=== PATIENT | male | born 1955 ===

== ENCOUNTER 2020-06-04 13:41 | Emergency (ER) | payer MEDICARE, OTHER ==
--- NOTE | 2020-06-04 14:08 | EDM.PDOC ---
ED HPI GENERAL MEDICAL PROBLEM - General Chief Complaint: Back Pain or Injury Stated Complaint: SEVERE BACK PAIN Time Seen by Provider: 06/04/20 13:56 Source of Information: Reports: Patient History Limitations: Reports: No Limitations - History of Present Illness INITIAL COMMENTS - FREE TEXT/NARRATIVE: HISTORY AND PHYSICAL: History of present illness: Patient is a 65-year-old male who presents to the ED today with concern of low back pain. Patient states he has chronic low back pain and has had multiple surgeries on his low back. Patient states that he has had an exacerbation of his low back over the past month and is seen the pain specialist, Dr. Nash as well as his primary care provider, Dr. serrano. Patient states he has been on oxycodone for 2 to 3 years which is prescribed by Dr. serrano. Patient states that he saw Dr. serrano [address] serrano increased his dose of oxycodone from 10 mg 4 times a day to 15 mg 4 times a day. Patient states he also has Flexeril available to him but does not use this because it makes him "act funny ". Patient states his low back pain today is typical of his usual low back pain and is not changed in nature from his multiple years of low back pain. Patient denies any loss or retention of bowel bladder function or saddle anesthesia. Patient denies any trauma or injury of his low back. Patient states he does bass ve an appointment in 1 week to see a neurosurgeon in [facility]. Patient states that his pain became more severe and he called the surgeon who told him to come to the ED to be further evaluated. Patient states he also had an MRI and CT imaging of his low back 1 week ago and was told that he has multiple nerves compressed and arthritis according to patient. Patient denies fever, chills, chest pain, shortness of breath, or cough. Denies headache, neck stiff ness, change in vision, syncope, or near syncope. Denies nausea, vomiting, abdominal pain, diarrhea, constipation, or dysuria. Has not noted any blood in urine or stool. Patient has been eating and drinking appropriately. Review of systems: As per history of present illness and below otherwise all systems reviewed and negative. Past medical history: As per history of present illness and as reviewed below otherwise noncontributory. Surgical history: As per history of present illness and as reviewed below otherwise noncontributory. Social history: See social history for further information Family history: As per history of present illness and as reviewed below otherwise noncontributory. Physical exam: General: Patient is alert, oriented, and in no acute distress. Patient sitting comfortably on exam table. HEENT: Atraumatic, normocephalic, pupils equal and reactive bilaterally, negative for conjunctival pallor or scleral icterus, mucous membranes moist, TMs normal bilaterally, throat clear, neck supple, nontender, trachea midline. No drooling or trismus noted. No meningeal signs. No hot potato voice noted. Lungs: Clear to auscultation, breath sounds equal bilaterally, chest nontender. Heart: S1S2, regular rate and rhythm without overt murmur Abdomen: Soft, nondistended, nontender. Negative for masses or hepatosplenomegaly. Negative for costovertebral tenderness. Pelvis: Stable nontender. Genitourinary: Deferred. Rectal: Deferred. Skin: Intact, warm, dry. No lesions or rashes noted. Extremities: No obvious deformity of the complete spine. No step-offs, crepitus, or point tenderness to palpation of the complete spine. There is scarring consistent with surgical history of the lumbar spine. Heel/toe gait intact. Patellar reflux intact bilaterally. Patient does have pain with ROM of the lumbar spine. Otherwise, atraumatic, negative for cords or calf pain. Neurovascular unremarkable. Neuro: Awake, alert, oriented. Cranial nerves II through XII unremarkable. Cerebellum unremarkable. Motor and sensory unremarkable throughout. Exam nonfocal. Notes: Patient does have indomethacin written on his medication list, however, he only uses this as needed for a gout flare. Patient states he has not had issues with gout in over a year and is not taking indomethacin at this time although this remains on his medication list. Patient does have an appointment in 1 week to meet with a neurosurgeon in regards to his recent imaging. Patient does have oxycodone available to him which has been adjusted recently with his primary care provider and I will not adjust the dose at this time. Patient does not have any change in his back pain that is been ongoing for multiple years and do not see any emergent need for a scan or imaging at this time. I will give patient a short burst of steroids in order to get him through to his neurosurgery appointment in 1 week. Voices understanding and is agreeable to plan of care. Denies any further questions or concerns at this time. Diagnostics: UA, patient declines EKG Therapeutics: Solumedrol, Toradol Prescription: Prednisone Impression: Acute on chronic low back pain Plan: 1. When resting please lay on a flat firm surface. Limit your mobility to prevent muscle stiffness. Get up to ambulate/move around/gentle stretching multiple times throughout the day. May alternate heat and ice to painful areas. 2. Tylenol and ibuprofen as needed for back pain. Otherwise, take the prescribed medication as directed. You can also continue to use your at home prescribed Oxycodone as already prescribed to you prior for pain management as prescribed. 3. Follow-up with your primary care provider and neurosurgeon as discussed. Return to the ED as needed and as discussed. Definitive disposition and diagnosis as appropriate pending reevaluation and review of above. Lower back pain Pain Score (Numeric/FACES): 10 - Related Data Allergies Allergy/AdvReac Type Severity Reaction Status Date / Time Penicillins Allergy Swelling Verified 06/04/20 13:59 Home Meds: Home Meds Indomethacin [Indocin] 50 mg PO TID PRN 10 Days #30 cap 07/30/18 [Rx] Allopurinol [Zyloprim] 100 mg PO DAILY 06/04/20 [History] Finasteride 5 mg PO DAILY 06/04/20 [History] Furosemide 40 mg PO DAILY 06/04/20 [History] Metoprolol Tartrate [Lopressor] 50 mg PO BID 06/04/20 [History] Triamterene/Hydrochlorothiazid [Triamterene-HCTZ 37.5-25 MG] 0.5 tab PO DAILY [History] lisinopriL [Lisinopril] 20 mg PO DAILY 06/04/20 [History] oxyCODONE 15 mg PO Q4HR 06/04/20 [History] predniSONE [Prednisone] 20 mg PO DAILY 5 Days #5 tablet 06/04/20 [Rx] Past Medical History Cardiovascular History: Reports: Bypass, High Cholesterol, Hypertension, [place] Respiratory History: Reports: COPD, Sleep Apnea Other Respiratory History: CPAP Musculoskeletal History: Reports: Back Pain, Chronic, Other (See Below) Other Musculoskeletal History: R wrist pain Psychiatric History: Reports: Anxiety, Depression - Past Surgical History Cardiovascular Surgical History: Reports: Coronary Artery Bypass Social & Family History - Family History Family Medical History: Noncontributory - Caffeine Use Caffeine Use: Reports: Soda ED ROS GENERAL - Review of Systems Review Of Systems: Comprehensive ROS is negative, except as noted in HPI. ED EXAM, GENERAL - Physical Exam Exam: See Below (see dictation) Course - Vital Signs Last Recorded V/S: Last Vital Signs Temp 98.2 F 06/04/20 14:00 Pulse 90 06/04/20 14:00 Resp 20 06/04/20 14:00 BP 139/76 06/04/20 14:00 Pulse Ox 97 06/04/20 14:00 - Orders/Labs/Meds Orders: Active Orders 24 hr Category Date Time Status EKG Documentation Completion [RC] STAT Care 06/04/20 14:50 Active Labs: Laboratory Tests 06/04/20 Range/Units 14:55 Urine Color YELLOW Urine Appearance CLEAR Urine pH 6.0 (5.0-8.0) Ur Specific [place] 1.010 (1.001-1.035) Urine Protein NEGATIVE (NEGATIVE) mg/dL Urine Glucose (UA) NEGATIVE (NEGATIVE) mg/dL Urine Ketones NEGATIVE (NEGATIVE) mg/dL Urine Occult Blood NEGATIVE (NEGATIVE) Urine Nitrite NEGATIVE (NEGATIVE) Urine Bilirubin NEGATIVE (NEGATIVE) Urine Urobilinogen 0.2 (<2.0) EU/dL Ur Leukocyte Esterase NEGATIVE (NEGATIVE) Meds: Medications Discontinued Medications Generic Name Dose Route Start Last Admin Trade Name Freq PRN Reason Stop Dose Admin Ketorolac Tromethamine 60 mg 06/04/20 14:44 06/04/20 14:50 Toradol IM 06/04/20 14:45 60 mg ONETIME ONE Administration Methylprednisolone Sodium Succinate 125 mg 06/04/20 14:36 06/04/20 14:50 Solu-Medrol IM 06/04/20 14:37 125 mg ONETIME ONE Administration Departure - Departure Time of Disposition: 14:50 Disposition: Home, Self-Care 01 Clinical Impression: Acute exacerbation of chronic low back pain - Discharge Information Prescriptions: predniSONE [Prednisone] 20 mg PO DAILY 5 Days #5 tablet Referrals: Jason Serrano MD [Primary Care Provider] - Forms: ED Department Discharge Additional Instructions: The following information is given to patients seen in the emergency department who are being discharged to home. This information is to outline your options for follow-up care. We provide all patients seen in our emergency department with a follow-up referral. The need for follow-up, as well as the timing and circumstances, are variable depending upon the specifics of your emergency department visit. If you don't have a primary care physician on staff, we will provide you with a referral. We always advise you to contact your personal physician following an emergency department visit to inform them of the circumstance of the visit and for follow-up with them and/or the need for any referrals to a consulting specialist. The emergency department will also refer you to a specialist when appropriate. This referral assures that you have the opportunity for follow-up care with a specialist. All of these measure are taken in an effort to provide you with optimal care, which includes your follow-up. Under all circumstances we always encourage you to contact your private physician who remains a resource for coordinating your care. When calling for follow-up care, please make the office aware that this follow-up is from your recent emergency room visit. If for any reason you are refused follow-up, please contact the [facility] Emergency Department at and asked to speak to the emergency department charge nurse. [facility] [address] [place] [address] [id number] 1. When resting please lay on a flat firm surface. Limit your mobility to prevent muscle stiffness. Get up to ambulate/move around/gentle stretching multiple times throughout the day. May alternate heat and ice to painful areas. 2. Tylenol and ibuprofen as needed for back pain. Otherwise, take the prescribed medication as directed. You can also continue to use your at home prescribed Oxycodone as already prescribed to you prior for pain management as prescribed. 3. Follow-up with your primary care provider and neurosurgeon as discussed. Return to the ED as needed and as discussed. Sepsis Event Note (ED) - Evaluation Sepsis Screening Result: No Definite Risk - Focused Exam Vital Signs: Vital Signs Temp Pulse Resp BP Pulse Ox 06/04/20 14:00 98.2 F 90 20 139/76 97 - My Orders Last 24 Hours: My Active Orders 06/04/20 14:50 EKG Documentation Completion [RC] STAT - Assessment/Plan Last 24 Hours: My Active Orders 06/04/20 14:50 EKG Documentation Completion [RC] STAT
[2020-06-04] MEDS ORDERED: methylPREDNISolone Sodium Succinate 125 MG/2 ML SDV IM ONE (14:36)
[2020-06-04] MEDS ORDERED: Ketorolac 60 MG/2 ML SDV IM ONE (14:44)
== END 2020-06-04 15:41 | disposition home or self-care (01) ==
LOC: MW.ED 13:41
DX: M54.5 Low back pain (principal); G89.29 Other chronic pain; I10 Essential (primary) hypertension; E78.00 Pure hypercholesterolemia, unspecified; I25.2 Old myocardial infarction; J44.9 Chronic obstructive pulmonary disease, unspecified; Z95.1 Presence of aortocoronary bypass graft; Z88.0 Allergy status to penicillin; Z79.899 Other long term (current) drug therapy
CPT/HCPCS: 81003; 96372; 99283; J1885; J2930

== ENCOUNTER 2020-06-25 11:47 | Day surgery (SDC) | payer MEDICARE, OTHER ==
[2020-06-25] MEDS ORDERED: Lidocaine 2% 5 ML SDV INJECT ONE (13:00)
[2020-06-25] MEDS ORDERED: Betamethasone Acetate/Betamethasone Sod Phosphate 30 MG/5 ML MDV EPIDUR ONE (13:00)
[2020-06-25] MEDS ORDERED: Iopamidol 200-M 10 ML vial ITHECAL ONE (13:00)
[2020-06-25] MEDS ORDERED: Ropivacaine 0.5% 5 MG/ML 30 ML SDV INJECT ONE (13:00)
--- NOTE | 2020-06-25 18:02 | OR ---
SURGEON: Margaret Kohli D.O. DATE OF PROCEDURE: 06/25/2020 PRIMARY SURGEON: Margaret Kohli DO ASSISTANTS: OR staff present: 1. Jacqui Lovelace. 2. Romain Ram. 3. Jacqui Mi RN. WOUND CLASS: I. PREOPERATIVE DIAGNOSES: 1. Failed back surgery syndrome. 2. Chronic low back pain. 3. Right sacroiliac joint arthropathy. POSTOPERATIVE DIAGNOSES: 1. Failed back surgery syndrome. 2. Chronic low back pain. 3. Right sacroiliac joint arthropathy. PROCEDURES PERFORMED: 1. Right sacroiliac joint injection. 2. Fluoroscopic guidance for needle placement. 3. Local with oral Valium for sedation. SCREENING QUESTIONS: The patient answered "No" to all the followin. Are you allergic to iodine, Betadine or latex? 2. Do you have a bleeding disorder? 3. Do you have any joint replacements, heart valve replacements or a pacemaker? 4. Are you on any anti-inflammatories or blood thinners? 5. Do you have any current local or systemic infections? DESCRIPTION OF PROCEDURE: The patient had the procedure thoroughly explained including all possible risks, benefits and alternatives. Consent was signed in my clinic indicating understanding and willingness to proceed. The patient presented to the outpatient [facility] and was escorted to the dressing room to disrobe and change into a hospital gown. Preoperative vital signs were taken and stable. The patient reported that Valium was taken prior to the procedure. The patient was brought to the procedure room and placed in the prone position on the procedure room table. A pillow was placed under the hips in order to flatten the lumbar lordosis. The back was prepped with ChloraPrep and sterilely draped. All personnel in the operating room were dressed in appropriate attire including surgical scrubs, head and shoe covers. This was to ensure sterility while in the treatment room. During the time fluoroscopy was in use all personnel in the operating room wore lead mtz with thyroid collars. Sterile technique was used during the procedure. The patient was awake and conversant throughout the procedure. The fluoroscope was positioned to provide an oblique view of the right sacroiliac joint. There was no evidence of infection at the site of needle insertion. The skin was anesthetized with 2% Lidocaine with a sterile 27-gauge 1.5 inch needle. Then under fluoroscopy a 22-gauge 3.5 inch spinal needle was placed within the sacroiliac joint in the lower one-third of the joint and then in the inferior aspect. IsoVue-200 contrast dyewas injected under live fluoroscopy and no intravascular flow pattern was observed. After negative aspiration of heme, the following solution was injected: 0.5% Ropivacaine, Celestone and 2% Lidocaine at each site. The patient tolerated the procedure well and vital signs were stable during and after the procedure. The staff escorted the patient to the recovery area and the patient was released to home in stable condition after a brief stay in the recovery room monitored by the nurse. The patient was given both oral and written discharge and follow up instructions. Recommended follow up in two weeks. The patient is able to contact the office if there are any additional problems or questions in the meantime. The patient was given discharge instruction and verbalizes understanding including understanding of those signs and symptoms that would require emergency care. PREOPERATIVE PAIN: 9/10. POSTOPERATIVE PAIN: 5-6/10. FOLLOWUP: In the Pain Clinic in 1 month. JUAN / BEN /[id number] FANY
== END 2020-06-25 13:52 | disposition home or self-care (01) ==
LOC: MW.SDS 11:47
PROVIDERS: ATTEND Anesthesiology
DX: G89.4 Chronic pain syndrome (principal); M96.1 Postlaminectomy syndrome, not elsewhere classified; G60.9 Hereditary and idiopathic neuropathy, unspecified; M48.062 Spinal stenosis, lumbar region with neurogenic claudication; M79.18 Myalgia, other site; K21.9 Gastro-esophageal reflux disease without esophagitis; M46.1 Sacroiliitis, not elsewhere classified; N40.0 Benign prostatic hyperplasia without lower urinary tract symptoms; I25.10 Atherosclerotic heart disease of native coronary artery without angina pectoris; J44.9 Chronic obstructive pulmonary disease, unspecified; F32.9 Major depressive disorder, single episode, unspecified; M10.9 Gout, unspecified; G47.33 Obstructive sleep apnea (adult) (pediatric); I10 Essential (primary) hypertension; Z88.0 Allergy status to penicillin; Z88.2 Allergy status to sulfonamides; Z88.8 Allergy status to other drugs, medicaments and biological substances; Z79.899 Other long term (current) drug therapy
CPT/HCPCS: 27096; J0702

== ENCOUNTER 2020-07-28 10:52 | Day surgery (SDC) | payer MEDICARE, OTHER ==
[~2020-07-28 10:52] MED LIST: Betamethasone Acetate/Betamethasone Sod Phosphate 30 MG/5 ML MDV EPIDUR ONE; Iopamidol 200-M 10 ML vial ITHECAL ONE; Lidocaine 2% 5 ML SDV INJECT ONE; Ropivacaine 0.5% 5 MG/ML 30 ML SDV INJECT ONE
[2020-07-28] MEDS ORDERED: Iopamidol 200-M 10 ML vial ITHECAL ONE (13:00)
[2020-07-28] MEDS ORDERED: Betamethasone Acetate/Betamethasone Sod Phosphate 30 MG/5 ML MDV EPIDUR ONE (13:00)
[2020-07-28] MEDS ORDERED: Ropivacaine 0.5% 5 MG/ML 30 ML SDV INJECT ONE (13:00)
[2020-07-28] MEDS ORDERED: Lidocaine 2% 5 ML SDV INJECT ONE (13:00)
--- NOTE | 2020-07-28 17:31 | OR ---
SURGEON: Margaret Kohli D.O. DATE OF PROCEDURE: 07/28/2020 PRIMARY SURGEON: Margaret Kohli DO ASSISTANTS: OR staff present: 1. Jacqui Mi RN. 2. RT Farrukh. 3. Romain Ram RN. WOUND CLASS: I. PREOPERATIVE DIAGNOSES: 1. Failed back surgery syndrome. 2. L3 through S1 lumbar fusion. 3. Lumbar degenerative disk disease; L1-2, L2-3, L5-S1. 4. Lumbar spinal stenosis. 5. Multilevel neural foraminal stenosis. 6. Lumbar radiculopathy. POSTOPERATIVE DIAGNOSES: 1. Failed back surgery syndrome. 2. L3 through S1 lumbar fusion. 3. Lumbar degenerative disk disease; L1-2, L2-3, L5-S1. 4. Lumbar spinal stenosis. 5. Multilevel neural foraminal stenosis. 6. Lumbar radiculopathy. PROCEDURES PERFORMED: 1. Left L1-2 transforaminal epidural steroid injection. 2. Left S1 transforaminal epidural steroid injection. 3. Fluoroscopic guidance for needle placement. 4. Local with oral Valium for sedation. SCREENING QUESTIONS: The patient answered "no" to all of the following questions: 1. Are you allergic to iodine, Betadine or latex? 2. Do you have a bleeding disorder? 3. Do you have any joint replacements, heart valve replacements, or a pacemaker? 4. Are you allergic to anti-inflammatories or blood thinners? 5. Do you have any current local or systemic infections? DESCRIPTION OF PROCEDURE: The patient had the procedure thoroughly explained including risks, benefits and alternatives. Consent was signed in my clinic indicating understanding and willingness to proceed. The patient presented to [facility] [place] where the patient was escorted to the dressing room to disrobe and change into a hospital gown. Preoperative vital signs were taken and stable. The patient reported that Valium was taken prior to the procedure. The patient was brought to the procedure room and placed in the prone position on the table. A pillow was placed under the abdomen in order to flatten the lumbar lordosis. The back was prepped with ChloraPrep and sterilely draped. All personnel in the operating room were dressed in appropriate attire including surgical scrubs, head and shoe covers. This was to ensure sterility while in the treatment room. During the time fluoroscopy was in use, all personnel in the operating room wore lead mtz with thyroid collars. Sterile technique was used during the procedure. The fluoroscope was placed for the left L1-2 transforaminal epidural steroid injection. There was no sign of infection at the skin site for needle insertion. The skin was anesthetized with 2% lidocaine with a 27 gauge 1-1/2 inch needle. Then, a 22 gauge 3-1/2 inch spinal needle, advanced to the left L1- 2 and left S1. Under direct fluoroscopic guidance needle position was verified in three views; AP, oblique and lateral, with 0.2 cubic centimeters increments of Isovue-200 dye. No intravascular flow pattern was observed under live fluoroscopy.Then a mixture of 6 milligrams of Celestone and local was slowly injected after negative aspiration of heme, cerebrospinal fluid and no paresthesias were noted. The needle was cleared prior to removal from the skin. The procedure was repeated as above for the left S1 transforaminal epidural steroid injection without complications No adverse reactions were noted. The patient was brought to the recovery room awake and in good condition by my staff. The patient was monitored and discharge instructions were given after a brief stay in the recovery area. Both oral and written discharge and follow up instructions were given. The patient will follow up in the clinic in 3-4 weeks post procedure to evaluate the efficacy. The patient verbalized understanding including understanding of those signs and symptoms that would require emergency care and knows how to contact the office if there are any problems or questions in the meantime. PREOPERATIVE PAIN: 8/10. POSTOPERATIVE PAIN: 1/10. FOLLOWUP: In the Pain Clinic in 3 weeks. JUAN / BEN /[id number] FANY
== END 2020-07-28 13:24 ==
LOC: MW.SDS 10:52
PROVIDERS: ATTEND Anesthesiology
DX: G89.4 Chronic pain syndrome (principal); M96.1 Postlaminectomy syndrome, not elsewhere classified; M51.16 Intervertebral disc disorders with radiculopathy, lumbar region; M51.17 Intervertebral disc disorders with radiculopathy, lumbosacral region; M48.061 Spinal stenosis, lumbar region without neurogenic claudication; M47.26 Other spondylosis with radiculopathy, lumbar region; I25.10 Atherosclerotic heart disease of native coronary artery without angina pectoris; E78.5 Hyperlipidemia, unspecified; K21.9 Gastro-esophageal reflux disease without esophagitis; I10 Essential (primary) hypertension; Z01.812 Encounter for preprocedural laboratory examination; Z20.828 Contact with and (suspected) exposure to other viral communicable diseases; Z98.1 Arthrodesis status; G60.9 Hereditary and idiopathic neuropathy, unspecified; J44.9 Chronic obstructive pulmonary disease, unspecified; F32.9 Major depressive disorder, single episode, unspecified; Z88.8 Allergy status to other drugs, medicaments and biological substances; Z88.0 Allergy status to penicillin; Z88.2 Allergy status to sulfonamides; Z79.82 Long term (current) use of aspirin; Z79.899 Other long term (current) drug therapy; I71.4 Abdominal aortic aneurysm, without rupture
CPT/HCPCS: 36415; 64483; 64484; 85025; 85610; J0702; J2001; J2795; Q9966

== ENCOUNTER 2020-09-03 11:09 | Day surgery (SDC) | payer MEDICARE, OTHER ==
[2020-09-03] MEDS ORDERED: Iopamidol 200-M 10 ML vial ITHECAL ONE (12:30)
[2020-09-03] MEDS ORDERED: Ropivacaine 0.5% 5 MG/ML 30 ML SDV INJECT ONE (12:30)
[2020-09-03] MEDS ORDERED: Lidocaine 2% 5 ML SDV INJECT ONE (12:30)
[2020-09-03] MEDS ORDERED: Betamethasone Acetate/Betamethasone Sod Phosphate 30 MG/5 ML MDV EPIDUR ONE ×2 (12:30)
--- NOTE | 2020-09-03 14:59 | OR ---
SURGEON: Margaret Kohli D.O. DATE OF PROCEDURE: 09/03/2020 PRIMARY SURGEON: Margaret Kohli DO ASSISTANTS: OR staff present: 1. Jimy Ridley RT. 2. Denny Hoffman RN. 3. Denny Ventura, RT. WOUND CLASS: I. PREOPERATIVE DIAGNOSES: 1. Failed back surgery syndrome. 2. Chronic lumbosacral radiculopathy. 3. Right L2 radiculopathy. PROCEDURES PERFORMED: 1. Right transforaminal epidural steroid injection at L2. 2. Right transforaminal epidural steroid injection at S1. 3. Fluoroscopic guidance for needle placement. 4. Local with oral Valium for sedation. SCREENING QUESTIONS: The patient answered "no" to all of the following questions: 1. Are you allergic to iodine, Betadine or latex? 2. Do you have a bleeding disorder? 3. Do you have any joint replacements, heart valve replacements, or a pacemaker? 4. Are you allergic to anti-inflammatories or blood thinners? 5. Do you have any current local or systemic infections? DESCRIPTION OF PROCEDURE: The patient had the procedure thoroughly explained including risks, benefits and alternatives. Consent was signed in my clinic indicating understanding and willingness to proceed. The patient presented to [facility] [place] where the patient was escorted to the dressing room to disrobe and change into a hospital gown. Preoperative vital signs were taken and stable. The patient reported that Valium was taken prior to the procedure. The patient was brought to the procedure room and placed in the prone position on the table. A pillow was placed under the abdomen in order to flatten the lumbar lordosis. The back was prepped with ChloraPrep and sterilely draped. All personnel in the operating room were dressed in appropriate attire including surgical scrubs, head and shoe covers. This was to ensure sterility while in the treatment room. During the time fluoroscopy was in use, all personnel in the operating room wore lead mtz with thyroid collars. Sterile technique was used during the procedure. The fluoroscope was placed for the right L2 transforaminal epidural steroid injection. There was no sign of infection at the skin site for needle insertion. The skin was anesthetized with 2% lidocaine with a 27 gauge 1-1/2 inch needle. Then, a 22 gauge 3-1/2 inch spinal needle, advanced to the right L2 and right S1. Under direct fluoroscopic guidance needle position was verified in three views; AP, oblique and lateral, with 0.2 cubic centimeters increments of Isovue-200 dye. No intravascular flow pattern was observed under live fluoroscopy.Then 6 milligrams of Celestone and local was slowly injected after negative aspiration of heme, cerebrospinal fluid and no paresthesias were noted. The needle was cleared prior to removal from the skin. The procedure was then repeated as above for the right S1 transforaminal epidural. No adverse reactions were noted. The patient was brought to the recovery room awake and in good condition by my staff. The patient was monitored and discharge instructions were given after a brief stay in the recovery area. Both oral and written discharge and follow up instructions were given. The patient will follow up in the clinic in 3-4 weeks post procedure to evaluate the efficacy. The patient verbalized understanding including understanding of those signs and symptoms that would require emergency care and knows how to contact the office if there are any problems or questions in the meantime. PREOPERATIVE PAIN: 8/10. POSTOPERATIVE PAIN: 6/10. FOLLOWUP: In the Pain Clinic in 1 month. JUAN / BEN /[id number] FANY
== END 2020-09-03 14:45 | disposition home or self-care (01) ==
LOC: MW.SDS 11:09
PROVIDERS: ATTEND Anesthesiology
DX: G89.4 Chronic pain syndrome (principal); M96.1 Postlaminectomy syndrome, not elsewhere classified; M48.061 Spinal stenosis, lumbar region without neurogenic claudication; M51.16 Intervertebral disc disorders with radiculopathy, lumbar region; M47.26 Other spondylosis with radiculopathy, lumbar region; I25.10 Atherosclerotic heart disease of native coronary artery without angina pectoris; K21.9 Gastro-esophageal reflux disease without esophagitis; J44.9 Chronic obstructive pulmonary disease, unspecified; F32.9 Major depressive disorder, single episode, unspecified; I10 Essential (primary) hypertension; G62.9 Polyneuropathy, unspecified; Z88.8 Allergy status to other drugs, medicaments and biological substances; Z95.5 Presence of coronary angioplasty implant and graft; Z88.0 Allergy status to penicillin; Z79.899 Other long term (current) drug therapy; Z79.82 Long term (current) use of aspirin; Z88.2 Allergy status to sulfonamides; Z98.890 Other specified postprocedural states
CPT/HCPCS: 64483; 64484; J0702; J2001; J2795; Q9966